=== PATIENT | female | born 1970 | race Caucasian/White ===

== ENCOUNTER 2017-01-04 21:06 | Emergency (ER) | payer SELFPAY ==
[~2017-01-04] VITALS: Ht 157.5 cm; Wt 77.0 kg
[2017-01-04] MEDS ORDERED: ACETAMINOPHEN WITH CODEINE 300/30MG TABLET PO STA (21:54)
[2017-01-04 22:36] LABS: BASOPHILS % 0.6 % (0.0-2.0); EOSINOPHILS % 7.6 % (0.0-5.0); HEMATOCRIT. 36.4 % (36.0-48.0); HEMOGLOBIN. 12.2 g/dL (12.0-16.0); LYMPHOCYTES % 32.3 % (20.0-50.0); MEAN CORPUSCULAR HEMOGLOBIN 30.5 pg (28.0-32.0); MEAN CORPUSCULAR VOLUME 90.9 fL (81.0-99.0); MONOCYTES % 7.3 % (2.0-8.0); NEUTROPHILS % 52.2 % (40.0-76.0); PLATELET 250 x1000/uL (130-400); RED BLOOD CELL COUNT 4.01 mill/uL (4.2-5.4); RED CELL DISTRIBUTION WIDTH 12.5 % (11.6-14.6)
[2017-01-04 22:40] LABS: PROTHROMBIN TIME 10.1 sec (9.4-11.6)
[2017-01-04 22:42] LABS: CHLORIDE 103 mEq/L (98-107)
[2017-01-04 22:50] LABS: CARBON DIOXIDE 27 mEq/L (21-32)
[2017-01-04 22:52] LABS: TROPONIN I < 0.02 ng/mL (0.00-0.04)
[2017-01-05 02:03] VITALS: BP 105/69
== END 2017-01-05 02:10 | disposition home or self-care (01) ==
LOC: ER 21:59
DX: R07.9 Chest pain, unspecified (principal)
CPT/HCPCS: 36415; 71010; 80053; 81025; 84484; 85025; 85610; 93005; 99285; Z7610

== ENCOUNTER 2017-11-25 12:44 | Emergency (ER) | payer SELFPAY ==
[~2017-11-25] VITALS: Ht 162.6 cm; Wt 87.0 kg
[2017-11-25] MEDS ORDERED: SODIUM CHLORIDE 0.9% 1,000 ML IV ONE (14:25)
[2017-11-25] MEDS ORDERED: MORPHINE SULFATE 4 MG/ML CPJ (NOT FOR IM USE) IV STA (14:25)
[2017-11-25 14:50] LABS: HEMATOCRIT. 35.9 % (36.0-48.0); HEMOGLOBIN. 12.3 g/dL (12.0-16.0); MEAN CORPUSCULAR HEMOGLOBIN 30.5 pg (28.0-32.0); MEAN CORPUSCULAR VOLUME 89.1 fL (81.0-99.0); MEAN PLATELET VOLUME 9.6 fl (7.4-10.4); PLATELET 236 x1000/uL (130-400); RED BLOOD CELL COUNT 4.03 mill/uL (4.2-5.4)
[2017-11-25 14:52] LABS: CLARITY URINE CLOUDY (CLEAR); COLOR URINE YELLOW (YELLOW); KETONES URINE NEGATIVE (NEGATIVE); LEUKOCYTE ESTERASE URINE TRACE (NEGATIVE); NITRITE URINE NEGATIVE (NEGATIVE); OCCULT BLOOD URINE NEGATIVE (NEGATIVE); PH URINE 5.5 (4.5-8.0); PROTEIN URINE NEGATIVE (NEGATIVE); SPECIFIC GRAVITY URINE 1.005 (1.005-1.030); UROBILINOGEN URINE 0.2 E.U./dL (0.2-1.0)
[2017-11-25 14:54] LABS: CHLORIDE 105 mEq/L (98-107)
[2017-11-25 15:16] LABS: *AMPHETAMINES SCREEN URINE NEGATIVE (NEGATIVE); *BARBITURATES SCREEN URINE NEGATIVE (NEGATIVE); *COCAINE SCREEN URINE NEGATIVE (NEGATIVE); CANNABINOID URINE SCREEN NEGATIVE (NEGATIVE)
[2017-11-25 15:17] LABS: *BENZODIAZEPINES SCREEN URINE NEGATIVE (NEGATIVE); METHADONE URINE SCREEN NEGATIVE (NEGATIVE); OPIATES URINE SCREEN NEGATIVE (NEGATIVE); PHENCYCLIDINE URINE SCREEN NEGATIVE (NEGATIVE)
[2017-11-25 15:44] LABS: PLATELET ESTIMATE NORMAL
[2017-11-25] MEDS ORDERED: LIDOCAINE HCL/PF 1% 10 MG/ML 5ML VIAL IJ ONE (16:15)
[2017-11-25] MEDS ORDERED: CEFTRIAXONE SODIUM 250 MG/VIAL IM ONE (16:15)
[2017-11-25] MEDS ORDERED: AZITHROMYCIN 500 MG TABLET PO ONE (16:15)
[2017-11-25 17:47] VITALS: BP 112/76
== END 2017-11-25 17:50 | disposition home or self-care (01) ==
LOC: ER 13:33
DX: R10.32 Left lower quadrant pain (principal); N76.0 Acute vaginitis; Z90.49 Acquired absence of other specified parts of digestive tract
CPT/HCPCS: 36415; 80053; 80305; 81003; 81025; 83690; 85025; 85610; 87210; 87491; 87591; 96372; 96374; 99284; J0696; J2270; J3490; J7030

== ENCOUNTER 2018-02-21 16:03 | Emergency (ER) | payer BC ==
[~2018-02-21] VITALS: Ht 162.6 cm; Wt 83.0 kg
[2018-02-21 17:30] VITALS: BP 118/70
== END 2018-02-21 19:27 | disposition left against medical advice (07) ==
LOC: ER 16:52
DX: J06.9 Acute upper respiratory infection, unspecified (principal); Z90.49 Acquired absence of other specified parts of digestive tract
CPT/HCPCS: 71045; 81025; 93005; 99283

== ENCOUNTER 2019-04-17 19:50 | Emergency (ER) | payer BC ==
[~2019-04-17] VITALS: Ht 162.6 cm; Wt 88.6 kg
[2019-04-17 20:40] LABS: CLARITY URINE CLOUDY (CLEAR); COLOR URINE YELLOW (YELLOW); KETONES URINE NEGATIVE (NEGATIVE); LEUKOCYTE ESTERASE URINE 2+ (NEGATIVE); NITRITE URINE NEGATIVE (NEGATIVE); OCCULT BLOOD URINE NEGATIVE (NEGATIVE); PROTEIN URINE NEGATIVE (NEGATIVE); SPECIFIC GRAVITY URINE 1.018 (1.005-1.030)
[2019-04-18 01:47] LABS: UCG SCREEN NEGATIVE
[2019-04-18] MEDS ORDERED: HYDROCODONE/ACETAMINOPHEN 5/325MG TABLET PO ONE (02:15)
[2019-04-18 02:30] LABS: BASOPHILS % 0.9 % (0.0-2.0); EOSINOPHILS % 7.6 % (0.0-5.0); HEMATOCRIT. 35.4 % (36.0-48.0); HEMOGLOBIN. 12.2 g/dL (12.0-16.0); LYMPHOCYTES % 26.9 % (20.0-50.0); MEAN CORPUSCULAR HEMOGLOBIN 31.2 pg (28.0-32.0); MEAN CORPUSCULAR VOLUME 90.3 fL (81.0-99.0); MEAN PLATELET VOLUME 8.8 fl (7.4-10.4); MONOCYTES % 8.4 % (2.0-8.0); NEUTROPHILS % 56.2 % (40.0-76.0); PLATELET 234 x1000/uL (130-400); RED BLOOD CELL COUNT 3.92 mill/uL (4.2-5.4); RED CELL DISTRIBUTION WIDTH 12.4 % (11.6-14.6)
[2019-04-18 02:32] LABS: CHLORIDE 106 mEq/L (98-107)
[2019-04-18 04:29] VITALS: BP 115/75
[2019-04-18 05:35] LABS: UCG SCREEN NEGATIVE
== END 2019-04-18 04:30 | disposition home or self-care (01) ==
LOC: ER 19:50
DX: K80.20 Calculus of gallbladder without cholecystitis without obstruction (principal); Z98.51 Tubal ligation status; Z90.49 Acquired absence of other specified parts of digestive tract
CPT/HCPCS: 36415; 76700; 80053; 81003; 81025; 85025; 99284

== ENCOUNTER 2019-08-13 00:19 | Emergency (ER) | payer BC ==
[~2019-08-13] VITALS: Ht 162.6 cm; Wt 86.0 kg
[2019-08-13] MEDS ORDERED: KETOROLAC 30MG/ML VIAL IV STA (01:50)
[2019-08-13 02:53] LABS: CLARITY URINE CLOUDY (CLEAR); COLOR URINE YELLOW (YELLOW); KETONES URINE NEGATIVE (NEGATIVE); LEUKOCYTE ESTERASE URINE NEGATIVE (NEGATIVE); NITRITE URINE NEGATIVE (NEGATIVE); OCCULT BLOOD URINE NEGATIVE (NEGATIVE); PROTEIN URINE NEGATIVE (NEGATIVE); SPECIFIC GRAVITY URINE 1.017 (1.005-1.030); UROBILINOGEN URINE 0.2 E.U./dL (0.2-1.0)
[2019-08-13 04:53] VITALS: BP 100/63
== END 2019-08-13 05:02 | disposition home or self-care (01) ==
LOC: ER 00:19
DX: M54.5 Low back pain (principal); Z98.51 Tubal ligation status; Z90.49 Acquired absence of other specified parts of digestive tract
CPT/HCPCS: 72100; 81003; 81025; 96374; 99285; J1885

== ENCOUNTER 2019-11-22 12:54 | Emergency (ER) | payer BC ==
[~2019-11-22] VITALS: Ht 162.6 cm; Wt 86.3 kg
[2019-11-22] MEDS ORDERED: MORPHINE SULFATE 4 MG/ML CPJ (NOT FOR IM USE) IV STA (13:48)
[2019-11-22 14:36] LABS: HEMOGLOBIN. 12.7 g/dL (12.0-16.0); MEAN CORPUSCULAR VOLUME 90.6 fL (81.0-99.0); PLATELET 239 x1000/uL (130-400); RED BLOOD CELL COUNT 4.08 mill/uL (4.2-5.4); RED CELL DISTRIBUTION WIDTH 12.5 % (11.6-14.6)
[2019-11-22 14:38] LABS: CHLORIDE 106 mEq/L (98-107)
[2019-11-22 15:16] LABS: PLATELET ESTIMATE NORMAL
[2019-11-22] MEDS ORDERED: PROCHLORPERAZINE 10MG/2ML VIAL IV STA (17:57)
[2019-11-22 18:36] VITALS: BP 101/60
== END 2019-11-22 18:37 | disposition home or self-care (01) ==
LOC: ER 13:11
DX: R51 Headache (principal); R07.89 Other chest pain; F32.9 Major depressive disorder, single episode, unspecified; G47.00 Insomnia, unspecified; Z90.49 Acquired absence of other specified parts of digestive tract
CPT/HCPCS: 36415; 70450; 71045; 80053; 81025; 83880; 84484; 85025; 93005; 96374; 96375; 99285; J0780; J2270